=== PATIENT | male | born 1970 | race Caucasian/White ===

== ENCOUNTER 2019-07-06 15:22 | Emergency (ER) | payer OTHER ==
[~2019-07-06] VITALS: Ht 170.2 cm; Wt 70.3 kg
== END 2019-07-06 18:27 | disposition home or self-care (01) ==
LOC: ED 15:22
DX: S61.511A Laceration without foreign body of right wrist, initial encounter (principal); W26.8XXA Contact with other sharp object(s), not elsewhere classified, initial encounter; Y99.0 Civilian activity done for income or pay; F31.9 Bipolar disorder, unspecified; F17.200 Nicotine dependence, unspecified, uncomplicated
CPT/HCPCS: 73130; 99283-25; 99406

== ENCOUNTER 2019-11-21 12:02 | Emergency (ER) | payer SELFPAY ==
[~2019-11-21] VITALS: Ht 170.2 cm; Wt 70.3 kg
== END 2019-11-21 12:18 | disposition home or self-care (01) ==
LOC: ED 12:02
DX: R50.9 Fever, unspecified (principal)